=== PATIENT | female | born 1995 ===

== ENCOUNTER 2018-05-12 10:20 | Emergency (ER) | payer MEDICAID ==
--- NOTE | 2018-05-12 10:47 | ER Document Report ---
HPI - HPI Patient complains to provider of: Vaginal swelling Onset: This morning Pain Level: 2 Context: 22-year-old female while intoxicated last night had consensual unprotected intercourse for long periods of time with a dry introitus. When she woke up this morning her labia were swollen and tender. She is also getting upper lip swelling. No itching. No hx HSV. No hx GC or chlamydia. LMP was 9-18. Past Medical History - General Information source: Patient - Social History Smoking Status: Current Every Day Smoker Frequency of alcohol use: Heavy Drug Abuse: None Lives with: Alone Family History: Reviewed & Not Pertinent - Medical History Medical History: Negative Surgical Hx: Negative Vertical Provider Document - CONSTITUTIONAL Agree With Documented VS: Yes Exam Limitations: No Limitations General Appearance: No Apparent Distress - HEENT HEENT: Normal ENT Exam - NECK Neck: Supple - RESPIRATORY Respiratory: Breath Sounds Normal, No Respiratory Distress - CARDIOVASCULAR Cardiovascular: Regular Rate, Regular Rhythm - GI/ABDOMEN Gastrointestinal: Abdomen Soft, Abdomen Non-Tender, No Organomegaly - REPRODUCTIVE Notes: Labia majora swelling bilateral with some minor abrasions on the inside of the right labia, no discharge. Wet prep is negative. - BACK Back: negative: CVA Tenderness-Right, CVA Tenderness-Left - NEURO Level of Consciousness: Alert - DERM Notes: see above Course - Re-evaluation Re-evalutation: 05/14/18 18:56 Patient was positive for gonorrhea and chlamydia and was tx for both, steve called her yesterday. She understands not to have sexual relations for 2 weeks and her sexual partner needs to be treated. test was negative in ER - Vital Signs Vital signs: Temp Pulse Resp BP Pulse Ox 98.7 F 82 16 111/59 L 98 05/12/18 10:23 05/12/18 10:23 05/12/18 10:23 05/12/18 10:23 05/12/18 10:23 Discharge - Discharge Clinical Impression: Labial swelling, Swollen upper lip Labial abrasion Qualifiers: Encounter type: initial encounter Qualified Code(s): S30.814A - Abrasion of vagina and vulva, initial encounter Condition: Good Disposition: HOME, SELF-CARE Instructions: Azithromycin ([facility] ( [facility]), [facility] ([facility]) Additional Instructions: 1. cool compress to labia 2. over the counter benadryl 25-50 mg every 4-6 hours for any itching and swelling 3. bacitracin 4. no sex until labia are well 5. Call me in 3 hours for the STD culture results at [phone] 6. You have been treated for possible gonorrhea and possible chlamydia 7. To protect from in the future STD- Herpes, HIV, gonorrhea, syphllis, chlamydia, HPV, trichomonas use condoms (carry them yourself) 8 referral to health department for HIV and further testing as needed Prescriptions: Ibuprofen [Motrin 600 mg Tablet] 600 mg PO Q8HP PRN #30 tablet PRN Reason: Forms: Return to Work
[2018-05-12] MEDS ORDERED: CEFTRIAXONE INJ 250 MG VIAL IM ONE (11:12)
[2018-05-12] MEDS ORDERED: AZITHROMYCIN 250 MG TABLET PO ONE (11:12)
[2018-05-12] MEDS ORDERED: LIDOCAINE 1% INJ-PF (10 MG/ML) 30 ML SDV INJ ONE (11:26)
[2018-05-12 11:35] LABS: RBCS (WET MOUNT) 1+ RBCS SEEN; T.VAGINALIS (WET MOUNT) NO TRICHOMONAS SEEN; WBCS (WET MOUNT) 1+ WBCS SEEN; YEAST (WET MOUNT) NO YEAST SEEN
[2018-05-12] MEDS ORDERED: IBUPROFEN 600 MG TABLET PO ONE (11:39)
[2018-05-12] MEDS ORDERED: DIPHENHYDRAMINE HCL 50 MG CAPSULE PO ONE (11:39)
[2018-05-12 12:00] VITALS: BP 108/66
[2018-05-12 13:00] LABS: CHLAM PCR DETECTED (NOT DETECT); GON PCR DETECTED (NOT DETECT)
== END 2018-05-12 11:58 | disposition home or self-care (01) ==
LOC: ER 10:20
DX: S30.814A Abrasion of vagina and vulva, initial encounter (principal); N76.89 Other specified inflammation of vagina and vulva; R22.0 Localized swelling, mass and lump, head; X58.XXXA Exposure to other specified factors, initial encounter; F17.200 Nicotine dependence, unspecified, uncomplicated
CPT/HCPCS: 99283; 96372; 87210; 81025; 87491; 87591; J3490; J0696

== ENCOUNTER 2018-06-10 09:06 | Emergency (ER) | payer MEDICAID ==
[2018-06-10] MEDS ORDERED: FLUCONAZOLE 100 MG TABLET PO ONE (09:51)
--- NOTE | 2018-06-10 09:54 | ER Document Report ---
ED General - General Chief Complaint: Vaginal Pain Stated Complaint: VAGINAL PAIN Time Seen by Provider: 06/10/18 09:43 TRAVEL OUTSIDE OF THE [place] IN LAST 30 DAYS: No - HPI Notes: Patient is a 22-year-old female that presents to the emergency department for chief complaint of vaginal itching. Patient reports on May 13 she was treated for gonorrhea and chlamydia which she tested positive for. She has not been sexually active since. She states that she has been having vaginal itching and irritation since receiving the antibiotics in April. She states it feels similar to previous yeast infections. She denies any vaginal discharge or bleeding. She had a normal menstrual cycle 1 week ago. Patient has not followed up with [facility] or primary care since her previous ER visit. She denies any abdominal pain, nausea, vomiting and fevers. She states that she was having some labial swelling prior to getting treated for gonorrhea and chlamydia, that symptom has since resolved. Currently she denies any external vaginal lesions or swelling. Past Medical History: Negative Past Surgical History: Negative Social History: Denies drugs alcohol and tobacco Family History: Reviewed and noncontributory for presenting illness Allergies: Reviewed, see documented allergy list. REVIEW OF SYSTEMS: CONSTITUTIONAL : No fever No chills No diaphoresis No recent illness EENT: No vision changes No congestion No sore throat CARDIOVASCULAR: No chest pain No palpitations RESPIRATORY: No shortness of breath No cough No difficulty breathing GASTROINTESTINAL: No abdominal pain No nausea No vomiting No diarrhea GENITOURINARY: Vaginal itching No dysuria No hematuria No difficulty urinating MUSCULOSKELETAL: No back pain No leg pain No arm pain SKIN: No rashes No lesions LYMPHATIC: No swollen, enlarged glands. NEUROLOGICAL: No lightheadedness No headache No weakness No paresthesias PSYCHIATRIC: No anxiety No depression PHYSICAL EXAMINATION: Vital signs reviewed, nursing noted reviewed. GENERAL: Well-appearing, well-nourished and in no acute distress. HEAD: Atraumatic, normocephalic. EYES: Eyes appear normal, extraocular movements intact, sclera anicteric, conjunctiva are normal. ENT: nares patent, oropharynx clear without exudates. Moist mucous membranes. NECK: Normal range of motion, supple without lymphadenopathy LUNGS: Breath sounds clear to auscultation bilaterally and equal. No wheezes rales or rhonchi. HEART: Regular rate and rhythm without murmurs ABDOMEN: Soft, nontender, normoactive bowel sounds. No rebound, guarding, or rigidity. No masses appreciated. EXTREMITIES: Nontender, good range of motion, no pitting or edema. NEUROLOGICAL: No focal neurological deficits. Moves all extremities spontaneously Motor and sensory grossly intact on exam. PSYCH: Normal mood, normal affect. SKIN: Warm, Dry, normal turgor, no rashes or lesions noted on exposed skin - Related Data Allergies/Adverse Reactions: No Known Allergies Allergy (Verified 06/10/18 09:07) Past Medical History - Social History Smoking Status: Never Smoker Family History: Reviewed & Not Pertinent Renal/ Medical History: Denies: Hx Peritoneal Dialysis Review of Systems - Review of Systems Notes: Dictated Physical Exam - Vital signs Vitals: Temp Pulse Resp BP Pulse Ox 99.1 F 62 18 112/61 98 06/10/18 09:10 06/10/18 09:10 06/10/18 09:10 06/10/18 09:10 06/10/18 09:10 - Notes Notes: Dictated Course - Re-evaluation Re-evalutation: 06/10/18 09:53 Vitals reviewed. Nursing notes reviewed. Patient had been treated for gonorrhea and chlamydia and reports no sexual activity since. She is having symptoms consistent with yeast vaginitis and will be treated with Diflucan. She had a normal menstrual cycle 1 week ago and has declined test in the ER today. She reports her labial edema has resolved and denies any external lesions that she wants examined today. She will be given a prescription for Diflucan to take in 1 week if her symptoms are continuing. She will be referred to gynecology for follow-up. She will return for any new or worsening symptoms. Discharged home in stable condition. - Vital Signs Vital signs: Temp Pulse Resp BP Pulse Ox 99.1 F 62 18 112/61 98 06/10/18 09:10 06/10/18 09:10 06/10/18 09:10 06/10/18 09:10 06/10/18 09:10 Discharge - Discharge Clinical Impression: Yeast vaginitis Condition: Stable Disposition: HOME, SELF-CARE Instructions: Vaginal Yeast Infection ([facility]) Additional Instructions: Please return to the emergency department if you have any worsening, or concern of your symptoms. Please return to the emergency department if you develop chest pain, difficulty breathing, severe abdominal pain, or ongoing vomiting. Please follow-up with your primary care physician in 2-3 days and any other recommended physicians. If prescribed, take all medications as directed. If you have any questions or concerns do not hesitate to return the emergency department for evaluation. If you are still having symptoms in 1 week fill the Diflucan prescription and take the one extra dose Prescriptions: Fluconazole [Diflucan] 150 mg PO ONCE PRN #1 tablet PRN Reason: vaginal burning Referrals: [facility] [Provider Group] - Follow up in 3-5 days
[2018-06-10 10:38] VITALS: BP 106/66
== END 2018-06-10 10:36 | disposition home or self-care (01) ==
LOC: ER 09:06
DX: B37.3 Candidiasis of vulva and vagina (principal); R10.2 Pelvic and perineal pain
CPT/HCPCS: 99283